=== PATIENT | male | born 1970 | race Two or more races ===

== ENCOUNTER 2020-12-27 07:04 | Outpatient (CLI) | payer OTHER | END 2020-12-27 07:21 | disposition home or self-care (01) | LOC: NUCLEAR 07:04 | PROVIDERS: ATTEND Otolaryngology Plastic Surgery within the Head & Neck | DX: R59.9 Enlarged lymph nodes, unspecified (principal); C09.1 Malignant neoplasm of tonsillar pillar (anterior) (posterior); E03.9 Hypothyroidism, unspecified | CPT/HCPCS: 78815; A9552 ==

== ENCOUNTER 2021-11-21 07:35 | Outpatient (CLI) | payer OTHER | END 2021-11-21 09:53 | disposition home or self-care (01) | LOC: NUCLEAR 07:35 | DX: C09.0 Malignant neoplasm of tonsillar fossa (principal) ==

== ENCOUNTER 2024-09-02 07:11 | Outpatient (CLI) | payer OTHER | END 2024-09-02 07:13 | disposition home or self-care (01) | LOC: NUCLEAR 07:11 | DX: C09.0 Malignant neoplasm of tonsillar fossa (principal) ==